=== PATIENT | female | born 1990 | race Caucasian/White ===

== ENCOUNTER 2016-09-16 07:49 | Emergency (ER) | payer OTHER ==
[~2016-09-16] VITALS: Ht 162.6 cm; Wt 134.1 kg
[2016-09-16 07:52] VITALS: TEMP 99.3
[2016-09-16] MEDS ORDERED: NEXIUM 20MG20 MG PO (08:05)
[2016-09-16 08:32] LABS: INFLUENZA B NEGATIVE
[2016-09-16 09:03] VITALS: BP 138/80
[2016-09-16 09:38] VITALS: PULSE 98
== END 2016-09-16 09:38 | disposition home or self-care (01) ==
LOC: COL.ER 07:49
PROVIDERS: Physician Assistant
DX: J11.1 Influenza due to unidentified influenza virus with other respiratory manifestations (principal)
CPT/HCPCS: J7030